=== PATIENT | male | born 1990 ===

== ENCOUNTER 2024-03-13 09:37 | Emergency (ER) | payer MEDICAID, SELFPAY ==
[2024-03-13 09:44] VITALS: BP 112/71; PULSE 82; RESP 16; TEMP 36.3; O2SAT 96; BMI 31.5
--- NOTE | 2024-03-13 12:42 | ED.MALEGU ---
HPI - Male Genitourinary General Chief complaint: Urogenital-Male Stated complaint: burn around groin area Time Seen by Provider: 03/13/24 12:01 Source: patient, RN notes reviewed and old records reviewed Mode of arrival: ambulatory History of Present Illness ED Provider: Danielle Raymundo PA-C [facility] Narrative: 33-year-old male with past medical history rhabdomyolysis presenting to the ED complaining of skin irritation/burning to groin area s/p shaving and dark urine x few days. States he shaved groin area and then was working in the heat and felt burning/irritation to skin. Reports history of muscle breakdown and feels urine is looking similar to that in the past. denies muscle cramps or excessive working out recently. Denies dysuria, hematuria, abdominal pain, nausea/vomiting, testicular discharge, concern for STI Related Data Allergies Allergy/AdvReac Type Severity Reaction Status Date / Time No Known Allergies Allergy Verified 03/13/24 09:46 Review of Systems Review of Systems: Constitutional: No Fever, No Chills ENT/Mouth: No Ear Pain, No Nasal Congestion, No sore throat, No Rhinorrhea, No Swallowing Difficulty Cardiovascular: No Chest Pain, No SOB Respiratory: No Cough Gastrointestinal: No Nausea, No Vomiting, No Diarrhea, No Constipation, No Abdominal pain Genitourinary: +discolored urine, No Dysuria, No Hematuria, No Urinary Incontinence/retention, No Flank Pain Musculoskeletal: No joint pain, No Myalgias, No Joint Swelling Skin: No Skin Lesions, +rash Neuro: No Weakness, No Numbness, No Paresthesias Yes all other systems are reviewed and are negative Constitutional: Constitutional: Reports as per [facility] Past Medical History Attestation statement: The following information was validated with the patient. Source: old records reviewed Social History Social History Advance Directives: No Advance Directives Information Provided: No Physical Exam Vital Signs: Vital Signs: Last Vital Signs Temp 97.3 F 03/13/24 09:44 Pulse 82 03/13/24 09:44 Resp 16 03/13/24 09:44 BP 112/71 03/13/24 09:44 Pulse Ox 96 03/13/24 09:44 O2 Del Method Room Air 03/13/24 09:44 BMI result Body Mass Index 31.5 Const: General: cooperative, healthy appearing and no acute distress Orientation/consciousness: patient oriented x3 Limitations: no limitations HEENT: Head: Yes normal to inspection and Yes atraumatic Ears: hearing grossly normal bilaterally General nose exam: Normal external nose present Face and sinus: Yes normal facial exam Eyes: General: appearance normal, both eyes and all related structures EOM: EOMs intact bilaterally Neck: Neck: Yes normal visual inspection and Yes no meningeal signs Resp: Effort & Inspection: normal respiratory effort and no respiratory distress Cardio: Rate: regular rate GI: Inspection: Yes normal to inspection Palpation (GI): Soft to palpation, nontender, no guarding and not rigid Skin: Other: +chafing to inner thighs bilaterally. No folliculitis. No open wounds/oozing. No warmth, fluctuance or induration Wounds: no wounds Neuro: General: patient oriented x3, tone normal and no meningeal signs Cranial nerves: Yes CN's II-XII intact bilaterally Gait exam (Neuro): Normal gait present Extrem: General: Yes normal to inspection Course Course Course Narrative: -labs reassuring. CPK mildly elevated to 347 > patient received 1 L IVF in the ED. -UA noninfected >> patient is supplied with barrier cream in the ED. Also recommended powder to area, avoiding excessive sweat/moisture Results discussed with patient including worrisome signs and symptoms and strict return precautions, and when to return to the emergency department. They verbalized understanding and feel safe for discharge at this time. Medications Administered Discontinued Medications Generic Name Dose Route Start Last Admin Trade Name Freq PRN Reason Stop Dose Admin Sodium Chloride 1,000 mls @ 999 mls/hr 03/13/24 12:45 03/13/24 14:16 Ns IV 03/13/24 13:45 Infused .Q1H1M STEPHANIE Infusion Medical Decision Making Medical Decision Making [facility] Narrative: 33-year-old male with past medical history rhabdomyolysis presenting to the ED complaining of skin irritation/burning to groin area s/p shaving and dark urine x few days. States he shaved groin area and then was working in the heat and felt burning/irritation to skin. Reports history of muscle breakdown and feels urine is looking similar to that in the past. On exam vital signs stable, NAD, nontoxic appearing, chafing/skin irritation noted to groin area. Abdomen soft/nontender. Concern for skin irritation/chafing/heat rash. No evidence of cellulitis or Alondra gangrene or tinea. Lower suspicion for herpes. Concern for possible rhabdo. Rule out UTI vs dehydration vs other metabolic abnormalities Plan: Labs, UA, barrier cream Please refer to course for remaining clinical decision making, interpretation of labs/imaging results, and discussions with consultants and/or family members. Differential Diagnosis Differential Diagnoses: The differential diagnosis associated with the presentation includes As above Lab Data MDM Lab Attestation statement: I reviewed the patient's lab results. 03/13/24 12:38 03/13/24 12:38 Labs: Lab Results 03/13/24 Range/Units 12:38 WBC 6.5 (4.8-10.8) X10*3/uL RBC 4.89 (4.60-5.80) X10*6/uL Hgb 15.4 (14.0-18.0) g/dl Hct 44.1 (42.0-52.0) % MCV 90.2 (80.0-98.0) fL MCH 31.5 (27.0-33.0) pg MCHC 34.9 (31.0-36.0) g/dl RDW 13.1 (11.0-16.0) % Plt Count 223 (160-400) X10*3/uL MPV 9.9 (9.4-12.4) fL Immature Gran % (Auto) 0.3 (0.0-0.4) % Neut % (Auto) 60.5 (45-73) % Lymph % (Auto) 24.2 (20-40) % [place] % (Auto) 8.4 (2-11) % Eos % (Auto) 5.5 H (0-4) % Baso % (Auto) 1.1 (0-2) % Lymph # (Auto) 1.6 (1.2-4.9) X10*3/uL [place] # (Auto) 0.6 (0.1-1.2) X10*3/uL Eos # (Auto) 0.4 (0.0-0.4) X10*3/uL Baso # (Auto) 0.1 (0.0-0.2) X10*3/uL Abs Immat Gran (auto) 0.02 (0.00-0.03) X10*3/uL Absolute Neuts (auto) 4.0 (2.0-8.3) x10*3/uL Absolute Nucleated RBC 0.000 (0.0-0.012) X10*3/uL Nucleated RBC % (auto) 0.0 (0.0-0.2) /100WBC Sodium 141 (135-145) mmol/L Potassium 4.0 (3.3-5.1) mmol/L Chloride 109 H (96-108) mmol/L Carbon Dioxide 24 (22-29) mmol/L Anion Gap 12 (12-20) BUN 15 (9-16) mg/dL Creatinine 0.89 (0.5-1.4) mg/dL Estim Creat Clear Calc 132.6 Estimated GFR > 60 Random Glucose 86 (60-115) mg/dL Calcium 9.5 (8.4-10.2) mg/dL Total Bilirubin 0.4 (0.0-1.0) mg/dL Direct Bilirubin 0.1 (0.0-0.5) mg/dL AST 22 (5-37) U/L ALT 30 (0-40) U/L Alkaline Phosphatase 87 (39-117) U/L Total Creatine Kinase 347 H (38-174) U/L Total Protein 7.1 (6.5-8.0) g/dL Albumin 4.3 (3.5-5.0) g/dL Urine Color Yellow Urine Appearance Clear Urine pH 6.5 (5.0-9.0) Ur Specific [place] >= 1.030 H (1.005-1.025) Urine Protein 30 (1+) H (Neg-Trace) mg/dL Urine Glucose (UA) Negative (Negative) mg/dL Urine Ketones Trace (Negative) mg/dL Urine Blood Negative (Negative) Urine Nitrite Negative (Negative) Ur Leukocyte Esterase Negative (Negative) Urine RBC 0-2 (0-2) /HPF Urine WBC 0-5 (0-5) /HPF Ur Squamous Epith Cells 0-2 (0-2) /HPF Urine Bacteria None Seen (None Seen) Hyaline Casts 0-2 (0-2) /LPF External Record Review External record reviewed: Inpatient record, Office record, Outpatient record, Prior outpatient labs, Prior outpatient radiology, Primary care record and Outside ED record Tests considered The following testing was considered but not selected: As above Discharge Plan Discharge Clinical Impression: Chafing Patient Disposition: Home, Self-Care Additional Instructions: Apply barrier cream to your rash. You may also use powder Avoid excessive moisture/sweat to the area Avoid shaving If begins look INFECTED OR RED THERE IS DRAINAGE RETURN TO THE ED Referrals: Physician,Jaskaran J [Primary Care Provider] - 1 week Stand Alone Forms: Work/School Release Print Language: Yoruba
[2024-03-13] MEDS: 0.9 % Sodium Chloride 1,000 ML 999 ML IV (12:51)
[2024-03-13 12:52] LABS: MANUAL DIFF FLAG NO
[2024-03-13 12:54] LABS: Appearance Urine Clear; Color Urine Yellow; Glucose Urine UA Negative (Negative); Leukocyte Esterase Urine Negative (Negative); Nitrite Urine Negative (Negative); PH 6.5 (5.0-9.0); Specific Gravity - Urine >= 1.030 (1.005-1.025); UMIC TRIGGER UACC YES; Urine Blood Negative (Negative); Urine Ketones Trace mg/dL (Negative); Urine Protein 30 (1+) mg/dL (Neg-Trace)
[2024-03-13 12:55] LABS: Basophils Absolute Auto 0.1 X10*3/uL (0.0-0.2); Basophils Percent Auto 1.1 % (0-2); Eosinophils Absolute Auto 0.4 X10*3/uL (0.0-0.4); Eosinophils Percent Auto 5.5 % (0-4); Hematocrit 44.1 % (42.0-52.0); Hemoglobin 15.4 g/dl (14.0-18.0); Imm Gran Abs Auto 0.02 X10*3/uL (0.00-0.03); Imm Gran Pct Auto 0.3 % (0.0-0.4); Lymphocytes Absolute Auto 1.6 X10*3/uL (1.2-4.9); Lymphocytes Percent Auto 24.2 % (20-40); Mean Corpuscular HGB Conc 34.9 g/dl (31.0-36.0); Mean Corpuscular Hemoglobin 31.5 pg (27.0-33.0); Mean Corpuscular Volume 90.2 fL (80.0-98.0); Mean Platelet Volume 9.9 fL (9.4-12.4); Monocytes Absolute Auto 0.6 X10*3/uL (0.1-1.2); Monocytes Percent Auto 8.4 % (2-11); Neutrophils Percent Auto 60.5 % (45-73); Platelet Count 223 X10*3/uL (160-400); Red Blood Count 4.89 X10*6/uL (4.60-5.80); Red Cell Distribution Width 13.1 % (11.0-16.0); White Blood Count 6.5 X10*3/uL (4.8-10.8)
[2024-03-13 13:11] LABS: Alanine Aminotransferase 30 U/L (0-40); Albumin Level 4.3 g/dL (3.5-5.0); Alkaline Phosphatase 87 U/L (39-117); Anion Gap 12 (12-20); Aspartate Amino Transferase 22 U/L (5-37); Bilirubin Direct 0.1 mg/dL (0.0-0.5); Bilirubin Total 0.4 mg/dL (0.0-1.0); Blood Urea Nitrogen 15 mg/dL (9-16); Calcium 9.5 mg/dL (8.4-10.2); Carbon Dioxide 24 mmol/L (22-29); Chloride 109 mmol/L (96-108); Creatinine Clr Calc Pharmacy 132.6; Estimated Glomerular Filt Rate > 60; Glucose Random 86 mg/dL (60-115); Sodium 141 mmol/L (135-145); Total Protein 7.1 g/dL (6.5-8.0)
[2024-03-13 13:17] LABS: Bacteria Urine None Seen (None Seen); Hyaline Casts Urine 0-2 /LPF (0-2); RBC Urine 0-2 /HPF (0-2); Squamous Epithelial Cell Urine 0-2 /HPF (0-2); WBC Urine 0-5 /HPF (0-5)
== END 2024-03-13 14:35 | disposition home or self-care (01) ==
PROVIDERS: Physician Assistant; Emergency Provider Emergency Medicine
DX: L30.4 Erythema intertrigo (principal)
CPT/HCPCS: 36415; 80048; 80076; 81001; 82550; 85025; 96360; 99283; 99284

== ENCOUNTER 2024-07-13 20:40 | Emergency (ER) | payer SELFPAY ==
[2024-07-13 21:04] VITALS: BP 128/100; PULSE 114; O2SAT 96; BMI 25.8
--- NOTE | 2024-07-13 21:13 | ED.GENADULT ---
HPI - General Adult General Chief complaint: General Medical Stated complaint: ANXIETY ATTACK, ?DRUGS PER EMS Time Seen by Provider: 07/13/24 21:16 Source: patient Limitations: no limitations History of Present Illness ED Provider: Spring Herman PA-C HPI narrative: 34-year-old male with self report of substance abuse, presents with anxiety. History limited as patient is extremely emotionally labile, unable to sit still. He is alluding to the fact that he used crack prior to arrival. Denies SI or HI. Related Data Allergies Allergy/AdvReac Type Severity Reaction Status Date / Time No Known Allergies Allergy Verified 07/13/24 21:10 Review of Systems Review of Systems: Unable to obtain due to patient's current state Yes all other systems are reviewed and are negative Constitutional: Constitutional: Reports fatigue Endocrine: Endocrine: Reports fatigue [facility] Past Medical History Attestation statement: The following information was validated with the patient. Social History Social History Advance Directives: No Advance Directives Information Provided: No Physical Exam ED Vital Signs: Vital Signs - 24 hr 07/13/24 21:51 Temperature 98.3 F Pulse Rate 85 Respiratory Rate 16 Blood Pressure 117/79 Pulse Oximetry 97 Oxygen Delivery Method Room Air BMI result Body Mass Index 25.8 Const Other: Awake, crying, emotionally labile, unable to sit still Orientation/consciousness: patient oriented x3 Resp Other: Nonlabored respiration Cardio Other: Normal peripheral perfusion Skin Other: Warm dry no rash Neuro General: patient oriented x3 and no focal motor deficits Psych Other: Rambling, pressured speech, emotionally labile Course Course Course Narrative: Care team we will not able to assess the patient, he became drowsy after being medicated, the day team we will assess him. If he chooses to leave once he is clinically sober, that is appropriate, he has not voiced suicidality or HI. Medications Administered Discontinued Medications Generic Name Dose Route Start Last Admin Trade Name Fredq PRN Reason Stop Dose Admin Haloperidol 10 mg 07/13/24 21:45 07/13/24 22:20 Haloperidol 5 Mg Tablet PO 07/13/24 21:46 10 mg ONCE ONE Administration Lorazepam 2 mg 07/13/24 21:45 07/13/24 22:20 Lorazepam 1 Mg Tablet PO 07/13/24 21:46 2 mg ONCE ONE Administration Medical Decision Making Medical Decision Making [facility] Narrative: 34-year-old male with self report of substance abuse, presents with anxiety. History limited as patient is extremely emotionally labile, unable to sit still. He is alluding to the fact that he used crack prior to arrival. Denies SI or HI. Problem: Substance abuse History: Per patient I have considered the following differential diagnoses: Decompensated psychiatric illness, drug/alcohol intoxication, SI, HI Plan: Unclear if patient's presentation is secondary to his substance use, versus decompensated psychiatric illness, we will screen basic labs, serum ethanol and drug screen, placing a care team consult. I am medicating the patient with Haldol and Ativan. With his inability to sit still, unclear how long he has been in this state, I am considering rhabdomyolysis as well, we will add a CPK I have independently reviewed the following tests: Labs: Slight leukocytosis, not anemic, no electrolyte abnormality, CPK 410, ethanol neg, utox pending Lab Data 07/13/24 21:39 07/13/24 21:39 Labs: Lab Results 07/13/24 Range/Units 21:39 WBC 14.0 H (4.8-10.8) X10*3/uL RBC 5.76 (4.60-5.80) X10*6/uL Hgb 18.2 H (14.0-18.0) g/dl Hct 50.1 (42.0-52.0) % MCV 87.0 (80.0-98.0) fL MCH 31.6 (27.0-33.0) pg MCHC 36.3 H (31.0-36.0) g/dl RDW 12.8 (11.0-16.0) % Plt Count 279 D (160-400) X10*3/uL MPV 10.1 (9.4-12.4) fL Immature Gran % (Auto) 0.3 (0.0-0.4) % Neut % (Auto) 70.9 (45-73) % Lymph % (Auto) 17.6 L (20-40) % [place] % (Auto) 9.5 (2-11) % Eos % (Auto) 1.2 (0-4) % Baso % (Auto) 0.5 (0-2) % Lymph # (Auto) 2.5 (1.2-4.9) X10*3/uL [place] # (Auto) 1.3 H (0.1-1.2) X10*3/uL Eos # (Auto) 0.2 (0.0-0.4) X10*3/uL Baso # (Auto) 0.1 (0.0-0.2) X10*3/uL Abs Immat Gran (auto) 0.04 H (0.00-0.03) X10*3/uL Absolute Neuts (auto) 9.9 H (2.0-8.3) x10*3/uL Absolute Nucleated RBC 0.000 (0.0-0.012) X10*3/uL Nucleated RBC % (auto) 0.0 (0.0-0.2) /100WBC Sodium 137 (135-145) mmol/L Potassium 3.4 (3.3-5.1) mmol/L Chloride 102 (96-108) mmol/L Carbon Dioxide 21 L (22-29) mmol/L Anion Gap 17 (12-20) BUN 19 H (9-16) mg/dL Creatinine 1.10 (0.5-1.4) mg/dL Estim Creat Clear Calc 92.4 Estimated GFR > 60 Random Glucose 106 (60-115) mg/dL Calcium 9.7 (8.4-10.2) mg/dL Magnesium 2.1 (1.6-2.6) mg/dL Total Bilirubin 1.2 H (0.0-1.0) mg/dL AST 25 (5-37) U/L ALT 25 (0-40) U/L Alkaline Phosphatase 87 (39-117) U/L Total Creatine Kinase 410 H (38-174) U/L Total Protein 8.1 H (6.5-8.0) g/dL Albumin 4.9 (3.5-5.0) g/dL Ethyl Alcohol < 10 mg/dL Discharge Plan Discharge Clinical Impression: Substance abuse Patient Disposition: Still a Patient Print Language: Latvian
--- NOTE | 2024-07-13 21:40 | PC.NURSE ---
Labs drawn and sent for analysis. Awaiting results. Changed over into green psych/hospital attire. Pt is very anxious, tearful, occasionally flailing his arms. Rambling but agreeable to care. Belongings secured with security staff.
[2024-07-13 21:44] LABS: MANUAL DIFF FLAG NO
[2024-07-13 21:45] LABS: Basophils Absolute Auto 0.1 X10*3/uL (0.0-0.2); Basophils Percent Auto 0.5 % (0-2); Eosinophils Absolute Auto 0.2 X10*3/uL (0.0-0.4); Eosinophils Percent Auto 1.2 % (0-4); Hematocrit 50.1 % (42.0-52.0); Hemoglobin 18.2 g/dl (14.0-18.0); Imm Gran Abs Auto 0.04 X10*3/uL (0.00-0.03); Imm Gran Pct Auto 0.3 % (0.0-0.4); Lymphocytes Absolute Auto 2.5 X10*3/uL (1.2-4.9); Lymphocytes Percent Auto 17.6 % (20-40); Mean Corpuscular HGB Conc 36.3 g/dl (31.0-36.0); Mean Corpuscular Hemoglobin 31.6 pg (27.0-33.0); Mean Platelet Volume 10.1 fL (9.4-12.4); Monocytes Absolute Auto 1.3 X10*3/uL (0.1-1.2); Monocytes Percent Auto 9.5 % (2-11); Neutrophils Absolute Auto 9.9 x10*3/uL (2.0-8.3); Neutrophils Percent Auto 70.9 % (45-73); Platelet Count 279 X10*3/uL (160-400); Red Blood Count 5.76 X10*6/uL (4.60-5.80); Red Cell Distribution Width 12.8 % (11.0-16.0)
[2024-07-13 21:51] VITALS: BP 117/79; PULSE 85; RESP 16; TEMP 36.8; O2SAT 97
[2024-07-13 22:02] LABS: Alanine Aminotransferase 25 U/L (0-40); Albumin Level 4.9 g/dL (3.5-5.0); Alkaline Phosphatase 87 U/L (39-117); Anion Gap 17 (12-20); Aspartate Amino Transferase 25 U/L (5-37); Bilirubin Total 1.2 mg/dL (0.0-1.0); Blood Urea Nitrogen 19 mg/dL (9-16); Calcium 9.7 mg/dL (8.4-10.2); Carbon Dioxide 21 mmol/L (22-29); Chloride 102 mmol/L (96-108); Creatinine Clr Calc Pharmacy 92.4; Estimated Glomerular Filt Rate > 60; Ethanol < 10 mg/dL; Glucose Random 106 mg/dL (60-115); Magnesium 2.1 mg/dL (1.6-2.6); Potassium 3.4 mmol/L (3.3-5.1); Sodium 137 mmol/L (135-145); Total Protein 8.1 g/dL (6.5-8.0)
[2024-07-13] MEDS: LORazepam 1 MG TABLET 2 MG PO (22:20)
[2024-07-13] MEDS: HaloperidoL 5 MG TABLET 10 MG PO (22:20)
--- NOTE | 2024-07-14 00:34 | PC.NURSE ---
Patient sleeping at this time. Respirations even/unlabored. No acute distress. Care ongoing by this RN.
[2024-07-14 01:11] VITALS: BP 104/71; PULSE 97; RESP 16; TEMP 36.6; O2SAT 95
--- NOTE | 2024-07-14 08:20 | PC.NURSE ---
care team at beside speaking with the pt
[2024-07-14 08:27] VITALS: BP 104/71; PULSE 97; RESP 16; TEMP 36.6; O2SAT 95
== END 2024-07-14 08:27 | disposition home or self-care (01) ==
PROVIDERS: Physician Assistant Medical; Emergency Provider Emergency Medicine
DX: F19.10 Other psychoactive substance abuse, uncomplicated (principal)
CPT/HCPCS: 36415; 80053; 80307; 82550; 83735; 85025; 99284; S9485

== ENCOUNTER 2024-07-14 09:19 | Emergency (ER) | payer SELFPAY ==
--- NOTE | ~2024-07-14 | CT_ITS ---
EXAMINATION: CT OF THE HEAD WITHOUT CONTRAST CT OF THE CERVICAL SPINE WITHOUT CONTRAST CLINICAL INFORMATION: Head trauma. Neck trauma.. COMPARISON: None. TECHNIQUE: Contiguous axial imaging was performed from the skullbase to vertex without intravenous administration of contrast. Coronal reformations of the head were obtained. Contiguous axial imaging was then performed from the skull base down to the thoracic inlet. Coronal and sagittal reformations of the cervical spine were obtained. This CT examination was performed using dose optimization techniques as appropriate, variously including the following: *Automated exposure control *Adjustment of mA and/or kV according to patient size (this includes techniques or standardized protocols for targeted exams where dose is matched to indication/reason for exam; i.e. extremities or head) *Use of iterative reconstruction technique DLP: 1111.31 mGy-cm. FINDINGS: CT scan of the head: There is no evidence of acute intracranial hemorrhage or territorial infarction. No abnormal mass-effect or midline shift is seen. Weber to white matter differentiation is well preserved. No extra-axial fluid collections are identified. The ventricles are normal in size. There is no abnormal attenuation within the brain parenchyma. The osseous structures and soft tissues are normal. There are small mucous retention cysts in the left sphenoid sinus. The mastoid air cells and visualized portions of the paranasal sinuses are well-aerated. CT scan of the cervical spine: Normal alignment is seen with no evidence of acute fracture or dislocation. Craniocervical junction and atlantoaxial articulations are intact. Prevertebral soft tissues are normal in thickness. The included soft tissues of the neck and lung apices are unremarkable. CT/CT head/brain wo IV con IMPRESSION: CT SCAN OF THE HEAD: No acute intracranial pathology. Mild sphenoid sinus disease. CT SCAN OF THE CERVICAL SPINE: No evidence of cervical spine fracture or malalignment. Electronically signed by: Kori Willoughby MD 07/14/2024 01:08 PM [facility]
--- NOTE | ~2024-07-14 | CT_ITS ---
EXAMINATION: CT CHEST, ABDOMEN AND PELVIS WITH CONTRAST CLINICAL INFORMATION: Blunt abdominal trauma, left buttock trauma. Chest trauma. COMPARISON: None available. TECHNIQUE: Contiguous axial thin section helical images of the chest, abdomen and pelvis were performed following the administration of oral contrast and 85 mL of intravenous Omnipaque 350. The data set was reformatted in the coronal and sagittal planes and reviewed on an independent workstation. This CT examination was performed using dose optimization techniques as appropriate, variously including the following: *Automated exposure control *Adjustment of mA and/or kV according to patient size (this includes techniques or standardized protocols for targeted exams where dose is matched to indication/reason for exam; i.e. extremities or head) *Use of iterative reconstruction technique DLP: 2904 mGy-cm. FINDINGS: LUNGS: No airspace consolidation. The central airways are patent. No large pulmonary nodule or mass. Evaluation is somewhat limited secondary to respiratory motion. PLEURA: No pleural effusion or pneumothorax. No pleural mass or thickening. MEDIASTINUM: No cardiomegaly. No significant pericardial effusion. No thoracic aortic dilatation or dissection. No significant mediastinal or hilar lymphadenopathy. CORONARY ARTERY CALCIFICATION: None present. CHEST WALL/AXILLA: No lymphadenopathy. LIVER, GALLBLADDER, AND BILIARY TREE: Normal size, shape, and attenuation. No focal hepatic lesion. No intra or extrahepatic biliary ductal dilatation. The gallbladder is unremarkable with no evidence of radiopaque gallstones, gallbladder wall thickening, or obvious pericholecystic inflammatory changes. PANCREAS: Unremarkable. SPLEEN: Unremarkable. ADRENAL GLANDS: Unremarkable. KIDNEYS AND URETERS: Normal size, shape, and attenuation. No hydronephrosis, hydroureter, or calculi. No perinephric stranding. BLADDER: Unremarkable. GASTROINTESTINAL TRACT: Small, sliding hiatal hernia. No bowel wall thickening or inflammatory change. No small or large bowel obstruction. The appendix is unremarkable. PERITONEAL CAVITY: No intra-abdominal free air or free fluid. No intra-abdominal mass or organized fluid collection/abscess formation. ABDOMINAL WALL: No significant abdominal wall hernia. LYMPH NODES: No significant lymphadenopathy. VASCULAR: Contrast opacifies the abdominal aorta and its branch vessels. No abdominal aortic dilatation or dissection. The IVC is unremarkable. PELVIC VISCERA: The prostate and seminal vesicles are unremarkable. OSSEOUS STRUCTURES: No displaced fracture. Evaluation is somewhat limited secondary to patient motion. CT/CT chest w IV con IMPRESSION: 1. No acute visceral or osseous injury. Evaluation somewhat limited secondary to patient motion. 2. Small, sliding hiatal hernia. No bowel wall thickening or inflammatory change. No small or large bowel obstruction. Unremarkable appendix. 3. No intra-abdominal mass, lymphadenopathy, or ascites. Electronically signed by: Zay Snowden MD 07/14/2024 01:24 PM [facility]
--- NOTE | ~2024-07-14 | CT_ITS ---
EXAMINATION: CT CHEST, ABDOMEN AND PELVIS WITH CONTRAST CLINICAL INFORMATION: Blunt abdominal trauma, left buttock trauma. Chest trauma. COMPARISON: None available. TECHNIQUE: Contiguous axial thin section helical images of the chest, abdomen and pelvis were performed following the administration of oral contrast and 85 mL of intravenous Omnipaque 350. The data set was reformatted in the coronal and sagittal planes and reviewed on an independent workstation. This CT examination was performed using dose optimization techniques as appropriate, variously including the following: *Automated exposure control *Adjustment of mA and/or kV according to patient size (this includes techniques or standardized protocols for targeted exams where dose is matched to indication/reason for exam; i.e. extremities or head) *Use of iterative reconstruction technique DLP: 2904 mGy-cm. FINDINGS: LUNGS: No airspace consolidation. The central airways are patent. No large pulmonary nodule or mass. Evaluation is somewhat limited secondary to respiratory motion. PLEURA: No pleural effusion or pneumothorax. No pleural mass or thickening. MEDIASTINUM: No cardiomegaly. No significant pericardial effusion. No thoracic aortic dilatation or dissection. No significant mediastinal or hilar lymphadenopathy. CORONARY ARTERY CALCIFICATION: None present. CHEST WALL/AXILLA: No lymphadenopathy. LIVER, GALLBLADDER, AND BILIARY TREE: Normal size, shape, and attenuation. No focal hepatic lesion. No intra or extrahepatic biliary ductal dilatation. The gallbladder is unremarkable with no evidence of radiopaque gallstones, gallbladder wall thickening, or obvious pericholecystic inflammatory changes. PANCREAS: Unremarkable. SPLEEN: Unremarkable. ADRENAL GLANDS: Unremarkable. KIDNEYS AND URETERS: Normal size, shape, and attenuation. No hydronephrosis, hydroureter, or calculi. No perinephric stranding. BLADDER: Unremarkable. GASTROINTESTINAL TRACT: Small, sliding hiatal hernia. No bowel wall thickening or inflammatory change. No small or large bowel obstruction. The appendix is unremarkable. PERITONEAL CAVITY: No intra-abdominal free air or free fluid. No intra-abdominal mass or organized fluid collection/abscess formation. ABDOMINAL WALL: No significant abdominal wall hernia. LYMPH NODES: No significant lymphadenopathy. VASCULAR: Contrast opacifies the abdominal aorta and its branch vessels. No abdominal aortic dilatation or dissection. The IVC is unremarkable. PELVIC VISCERA: The prostate and seminal vesicles are unremarkable. OSSEOUS STRUCTURES: No displaced fracture. Evaluation is somewhat limited secondary to patient motion. CT/CT abdomen pelvis w IV con IMPRESSION: 1. No acute visceral or osseous injury. Evaluation somewhat limited secondary to patient motion. 2. Small, sliding hiatal hernia. No bowel wall thickening or inflammatory change. No small or large bowel obstruction. Unremarkable appendix. 3. No intra-abdominal mass, lymphadenopathy, or ascites. Electronically signed by: Zay Snowdne MD 07/14/2024 01:24 PM [facility]
--- NOTE | ~2024-07-14 | CT_ITS ---
EXAMINATION: CT OF THE HEAD WITHOUT CONTRAST CT OF THE CERVICAL SPINE WITHOUT CONTRAST CLINICAL INFORMATION: Head trauma. Neck trauma.. COMPARISON: None. TECHNIQUE: Contiguous axial imaging was performed from the skullbase to vertex without intravenous administration of contrast. Coronal reformations of the head were obtained. Contiguous axial imaging was then performed from the skull base down to the thoracic inlet. Coronal and sagittal reformations of the cervical spine were obtained. This CT examination was performed using dose optimization techniques as appropriate, variously including the following: *Automated exposure control *Adjustment of mA and/or kV according to patient size (this includes techniques or standardized protocols for targeted exams where dose is matched to indication/reason for exam; i.e. extremities or head) *Use of iterative reconstruction technique DLP: 1111.31 mGy-cm. FINDINGS: CT scan of the head: There is no evidence of acute intracranial hemorrhage or territorial infarction. No abnormal mass-effect or midline shift is seen. Weber to white matter differentiation is well preserved. No extra-axial fluid collections are identified. The ventricles are normal in size. There is no abnormal attenuation within the brain parenchyma. The osseous structures and soft tissues are normal. There are small mucous retention cysts in the left sphenoid sinus. The mastoid air cells and visualized portions of the paranasal sinuses are well-aerated. CT scan of the cervical spine: Normal alignment is seen with no evidence of acute fracture or dislocation. Craniocervical junction and atlantoaxial articulations are intact. Prevertebral soft tissues are normal in thickness. The included soft tissues of the neck and lung apices are unremarkable. CT/CT cervical spine wo IV con IMPRESSION: CT SCAN OF THE HEAD: No acute intracranial pathology. Mild sphenoid sinus disease. CT SCAN OF THE CERVICAL SPINE: No evidence of cervical spine fracture or malalignment. Electronically signed by: Kori Willoughby MD 07/14/2024 01:08 PM [facility] [place]
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
[2024-07-14 09:30] VITALS: BP 107/74; PULSE 94; O2SAT 97
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
[2024-07-14 09:32] VITALS: BP 124/91; PULSE 116; RESP 16; TEMP 36.3; O2SAT 99; BMI 27.4
[2024-07-14 09:49] LABS: MANUAL DIFF FLAG NO
[2024-07-14] MEDS: LORazepam 2 MG/ML VIAL 1 MG IVPUSH (09:50)
[2024-07-14 09:51] LABS: Basophils Absolute Auto 0.1 X10*3/uL (0.0-0.2); Basophils Percent Auto 0.4 % (0-2); Eosinophils Absolute Auto 0.1 X10*3/uL (0.0-0.4); Eosinophils Percent Auto 1.3 % (0-4); Hematocrit 53.1 % (42.0-52.0); Hemoglobin 19.1 g/dl (14.0-18.0); Imm Gran Abs Auto 0.02 X10*3/uL (0.00-0.03); Imm Gran Pct Auto 0.2 % (0.0-0.4); Lymphocytes Absolute Auto 1.9 X10*3/uL (1.2-4.9); Lymphocytes Percent Auto 16.7 % (20-40); Mean Corpuscular Hemoglobin 31.6 pg (27.0-33.0); Mean Corpuscular Volume 87.8 fL (80.0-98.0); Mean Platelet Volume 9.9 fL (9.4-12.4); Monocytes Absolute Auto 1.2 X10*3/uL (0.1-1.2); Monocytes Percent Auto 11.1 % (2-11); Neutrophils Absolute Auto 7.8 x10*3/uL (2.0-8.3); Neutrophils Percent Auto 70.3 % (45-73); Platelet Count 276 X10*3/uL (160-400); Red Blood Count 6.05 X10*6/uL (4.60-5.80); Red Cell Distribution Width 12.8 % (11.0-16.0); White Blood Count 11.1 X10*3/uL (4.8-10.8)
[2024-07-14] MEDS: Diphth,Pertus(ACell),Tet Adult 0.5 ML SYRINGE IM (09:51)
[2024-07-14 11:06] LABS: Alanine Aminotransferase 24 U/L (0-40); Albumin Level 4.6 g/dL (3.5-5.0); Alkaline Phosphatase 87 U/L (39-117); Anion Gap 18 (12-20); Aspartate Amino Transferase 28 U/L (5-37); Bilirubin Direct 0.5 mg/dL (0.0-0.5); Bilirubin Total 1.1 mg/dL (0.0-1.0); Blood Urea Nitrogen 20 mg/dL (9-16); Calcium 9.6 mg/dL (8.4-10.2); Carbon Dioxide 22 mmol/L (22-29); Chloride 100 mmol/L (96-108); Creatinine Clr Calc Pharmacy 105.8; Estimated Glomerular Filt Rate > 60; Glucose Random 107 mg/dL (60-115); Lipase 8 U/L (8-78); Magnesium 2.1 mg/dL (1.6-2.6); Potassium 3.2 mmol/L (3.3-5.1); Sodium 137 mmol/L (135-145); Total Protein 7.6 g/dL (6.5-8.0)
[2024-07-14] MEDS: diphenhydrAMINE HCL 50 MG/ML VIAL 25 MG IVPUSH (11:58)
[2024-07-14] MEDS: ondansetron HCL 4 MG/2 ML VIAL IVPUSH (11:58)
--- NOTE | 2024-07-14 11:59 | PC.NURSE ---
pt started to vomit while in ct, medicated with zofran and Benadryl
[2024-07-14] MEDS: iohexoL 350 MG/ML 100 ML INFUS..BTL IV (12:01)
[2024-07-14 12:19] VITALS: BP 126/87; PULSE 100; RESP 18; O2SAT 95
[2024-07-14] MEDS: Potassium Chloride Packet 20 MEQ PACKET 40 MEQ PO (12:21)
[2024-07-14 14:31] VITALS: BP 126/87; PULSE 100; RESP 18; TEMP -17.7; TEMP 0; O2SAT 95
== END 2024-07-14 14:33 | disposition home or self-care (01) ==
PROVIDERS: Emergency Provider Emergency Medicine
DX: S70.312A Abrasion, left thigh, initial encounter (principal); S80.12XA Contusion of left lower leg, initial encounter; F14.10 Cocaine abuse, uncomplicated; F41.9 Anxiety disorder, unspecified; R51.9 Headache, unspecified; M54.2 Cervicalgia; R07.89 Other chest pain; X58.XXXA Exposure to other specified factors, initial encounter; Y93.89 Activity, other specified; Y92.810 Car as the place of occurrence of the external cause; Y99.8 Other external cause status; Z23 Encounter for immunization
CPT/HCPCS: 36415; 70450; 71260; 72125; 74177; 80048; 80076; 83690; 83735; 85025; 90471; 90715; 96374; 96375; 99284; J1200; J2060; J2405; Q9967; S9485